=== PATIENT | female | born 1965 | race Caucasian/White ===

== ENCOUNTER → 2017-04-29 18:24 | Outpatient (CLI) | payer OTHER, SELFPAY ==
[2017-04-29 18:29] LABS: Mucous, Urine 0 SEEN /hpf (<or=2+); Red Blood Cells-Urine 0 SEEN /hpf (0-5); Squamous Epithelial Cells - UA 0 SEEN /hpf (5-10)
[2017-04-29 18:31] LABS: Color, Urine Yellow (Yellow); Glucose, Dipstick Normal (Normal); Ketone-Dipstick Negative (Negative); Leukocyte Esterase-Dipstick 500 /ul (Negative); Nitrite-Dipstick Positive (Negative); Occult Blood-Urine 250 /ul (Negative); Protein-Dipstick 15 mg/dl (Negative); Urine Bilirubin Dipstick Negative (Negative); Urine Clarity Sl. Cloudy (Clear); Urine Urobilinogen Normal (Normal); Urine pH 6.5 (5.0 - 8.0)
[2017-04-29 18:36] LABS: White Blood Cells 25-50 SEEN /hpf (0-5)
[2017-04-29 18:37] LABS: Bacteria 1+ /hpf (None Seen)
[2017-04-29 18:38] LABS: Amorphous Sediment 1+
== END ==
PROVIDERS: Family Provider Family Medicine; PCP Family Medicine; Visit Provider Physician Assistant Surgical
DX: R30.0 Dysuria (principal)
CPT/HCPCS: 81001; 87077; 87086; 87088; 87186

== ENCOUNTER 2020-06-21 11:35 | Emergency (ER) | payer OTHER, SELFPAY ==
[2019-03-31 13:24] VITALS: BMI 23.8
[2020-06-21 11:36] VITALS: BP 147/97; PULSE 114; RESP 16; TEMP 36.3; O2SAT 98; BMI 25.0
--- NOTE | 2020-06-21 12:03 | RAD_ITS ---
STUDY: X-RAY - RIGHT HAND, ATTENTION 3 FINGER REASON FOR EXAM: Female, 54 years old. distal finger caught in machine TECHNIQUE: 3 view(s) of the finger were obtained. COMPARISON: None. FINDINGS: Normal metacarpal head. Normal metacarpophalangeal joint. Normal proximal phalanx. Normal middle phalanx. Partial amputation of the distal aspect of the digit with a comminuted fracture of the tuft of the distal phalanx. Normal proximal interphalangeal joint. Normal distal interphalangeal joint. RAD/Finger(s) Min 2 Views IMPRESSION: Partial indication the distal aspect of the third digit with comminuted fracture the tuft of the third distal phalanx per Electronically Signed: Daren Hernandez MD at 12:27 EDT Tel , Service support ,
--- NOTE | 2020-06-21 12:40 | ED.DCSUM_ITS ---
History of Present Illness Chief Complaint: Upper Extremity Injury Informant: Patient, Significant Other Narrative: 54-year-old female was using a wood continuous improvement analyst today when the piece of wood she was inserting got grabbed and started to pull her towards the business end. She jerked her hand back and hit it on the shield. This caused the end of the finger to explode. She states her legs feel very heavy. She states that lot of pain. She needs her tetanus updated. Past Medical History - Allergies and Home Meds Allergies/Adverse Reactions: Allergies venom-honey bee Allergy (Verified 06/21/20 11:37) Unknown Primary Care Physician: Manohar Adams DO [Primary Care Provider] - 10 Day for suture removal Past Medical History: None Surgical History: noncontributory Lives: Spouse/ Significant Other Smoking Status: Never smoker Drugs: None Review of Systems General: Denies: Chills, Fever, Sweats Eyes: Denies: Visual changes - bilaterally, Diplopia ENT: Denies: Rhinorrhea, Sore throat Cardiovascular: Denies: Chest pain, Palpitations Respiratory: Denies: Dyspnea, Cough, Dyspnea on exertion Gastrointestinal: Denies: Abdominal pain, Nausea, Vomiting, Diarrhea, Melena, Hematochezia Genitourinary: Denies: Dysuria, Hematuria, Frequency Musculoskeletal: Reports: Extremity Pain. Denies: Back pain Skin: Reports: Wounds. Denies: Rash Neurological: Denies: Headache, Weakness, Numbness Physical Exam Vital Signs/Narrative: Vital Signs Temp Pulse Resp BP Pulse Ox 06/21/20 11:36 97.4 F L 114 H 16 147/97 H 98 Inital Vital Signs reviewed: Yes General: Well nourished, Well developed, No Acute Distress Head: Normocephalic, Atraumatic Eyes: Perrl, EOMI ENT: Moist mucous membranes, No rhinorrhea Neck: Supple, Nontender Cardiovascular: Regular rate, Regular rhythm, No murmurs Respiratory: No distress, CTA bilaterally, Chest nontender Abdomen: Soft, Nontender, Nondistended, Normal bowel sounds Back: Nontender, Normal Inspection Extremities: Nontender, No edema Skin: Normal color, No rash, Trauma - The distal end shows significant skin avulsion. There is subcutaneous fat exposed. It appears that the bone is covered. Neurological: Alert, Oriented x3, Cranial nerves II-XII grossly intact, Normal Strength, Normal Sensation Psychological: Normal affect, Normal Mood Diagnostic/Tx/Re-eval Clinical Impression(s) from Imaging Studies Finger X-Ray 06/21/20 12:03 IMPRESSION: Partial indication the distal aspect of the third digit with comminuted fracture the tuft of the third distal phalanx per Electronically Signed: Daren Hernandez MD at 12:27 EDT Tel , Service support , - Medical Decision Making My interpretation of the plain films of the right middle finger is comminuted distal tuft fracture. Left tissue avulsion. Patient underwent digital block of her long finger using a standard volar approach. Once adequate anesthesia was obtained the wound was washed with Shur- Clens and explored. Multiple small wooden foreign bodies were removed. Four 5- 0 Ethilon sutures were used to close the remaining tissue as best I could. Wound care discussed with patient. Stitches to be removed in 10 days. Patient received [place] and Keflex here. She be placed on Keflex. Wound care discussed with the patient. ED Disposition - Plan for ED Patient: Disposition: Home or Assisted Living Diagnosis: Closed fracture of tuft of distal phalanx of finger, Avulsion, skin Instructions: ED Fracture, Finger, Closed, ED Skin Avulsion Prescriptions: Cephalexin [Keflex] 500 mg PO Q6 #28 capsule Prescription Printed Hydrocodone Bitart/Apap 5-325 [[place] 5MG-325MG] 1 tablet PO Q6H PRN PRN 3 Days #12 tab PRN Reason: Pain Prescription Printed Referrals: Manohar Adams DO [Primary Care Provider] - 10 Day for suture removal
[2020-06-21] MEDS: Lidocaine 1% (20 ml mdv) 20 ML Vial INFILT (12:45)
[2020-06-21] MEDS: Diphth,Pertuss(Acell),Tet Vac 0.5 ML Vial IM (12:57)
[2020-06-21] MEDS: HYDROcodone Bitartrate/Apap 5/325 Tablet PO (12:58)
[2020-06-21] MEDS: Cephalexin 250 MG Capsule 500 MG PO (12:58)
[2020-06-21 13:09] VITALS: BP 128/79; PULSE 76; RESP 18; O2SAT 100
== END 2020-06-21 13:22 | disposition home or self-care (01) ==
PROVIDERS: Emergency Provider Emergency Medicine; PCP Family Medicine
DX: S62.632A Displaced fracture of distal phalanx of right middle finger, initial encounter for closed fracture (principal); S61.203A Unspecified open wound of left middle finger without damage to nail, initial encounter; W31.89XA Contact with other specified machinery, initial encounter; Y93.89 Activity, other specified; Y92.89 Other specified places as the place of occurrence of the external cause; Y99.8 Other external cause status; Z23 Encounter for immunization
CPT/HCPCS: 10120; 73140; 90471; 90715; 99284

== ENCOUNTER 2020-11-13 11:00 | Outpatient (RCR) | payer OTHER, SELFPAY ==
--- NOTE | 2020-10-14 14:49 | HP.OTEVAL ---
Patient's Visit Information YOLANDA MIJARES is a 55 year old F, referred to Occupational Therapy by Dr. Manohar Adams DO, with a diagnosis of PAIN R FINGER, ADHESIVE CAPSULITIS R SHOULDER. Date of Evaluation: 10/14/20 Occupational Therapist: Rhona Deras - Subjective Pt seen for initial occupational therapy evaluation for pain R middle finger and adhesive capsulitis R shoulder. 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 On June 25 2020 she had an incident with wood production line hurting R middle finger with a significant laceration to R middle finger DIP with comminuted distal fracture with 4 stitches applied to keep R tip of middle finger in place, states was just the tip of the finger but now has limited ROM, swelling and increased edema of her R middle finger. Pt states tingling of the tip of her R middle finger since accident. Pt states when she hurt her finger she was very careful about moving R arm and now has increased pain and limited ROM and strength of her R shoulder. Her shoulder hurts when in flexion and when she completes internal/external rotation activities and completes specific upper body dressing tasks. She also has been seeing a massage therapists to help decrease her pain in her R shoulder every 3 weeks. Pt was independent with all BADL's, IADL's prior and still works. - Pain R shoulder 2 Pain Intensity Range: 1, 8 - Objective Pt demo limited ROM, strength and edema R middle finger and limited ROM with increased pain of her R shoulder with movement. - ROM MP: R middle -5'/85', L middle 0/100' PIP: R middle -8'/73', L middle 0/104' DIP: R middle 0'/25', L middle 0/65' ROM Comments: AROM R shoulder flexion 0/130', AROM L shoulder flexion 0/178'. AROM R shoulder abduction 0/110' AROM, L shoulder abduction 0/130'. PROM R shoulder abduction 0'/153'. PROM R shoulder flexion 0'/148' - Strength Shoulder: R 4-/5, L 4+/5 Aws Solution Architect: R 43# L 50# Tripod Pinch: R 6#, L 10# Strength Comments: R UE MMT 4-/5, L UE MMT 4+/5 - Edema Other: slight edema noted R middle finger, non-pitting - Sensation Sensation Comments: Limited sensation R tip of middle finger secondary to scar from incident in June 2020 - Quick DASH-Disab of Arm,Shoulder& Hand Quick DASH Score: 45.4525 - Goals Goal:: Pt will progress with x ray control equipment repairer strength R hand by 10# to assist with opening containers by d/c from OT. Pt will progress with R UE MMT 4/5 to assist with IADL tasks by d/c from OT. Pt will progress with tripod pinch R hand by 4# to assist with BADL tasks by d/c from OT. Goal:: Pt will progress w/ R shoulder AROM flexion by 40' to assist w/ BADL tasks by d/c from OT. Pt will progress w/ R middle finger PIP flexion by 10' to assist w/ BADL tasks by d/c from OT. Goal:: Pt will demo no pain greater than 1/10 with movement of R shoulder by d/c from OT. Goal:: Pt will demo good understanding of R UE HEP with 100% understanding and demo by d/c from OT. - Rehabilitation General Assessment: Pt seen for initial occupational therapy evaluation for pain R middle finger and adhesive capsulitis R shoulder. On June 25 2020 she had an incident with wood production line hurting R middle finger with a significant laceration to R middle finger DIP with comminuted distal fracture with 4 stitches applied to keep R tip of middle finger in place, states was just the tip of the finger but now has limited ROM, swelling and increased edema of her R middle finger. Pt states tingling of the tip of her R middle finger since accident. Pt states when she hurt her finger she was very careful about moving R arm and now has increased pain and limited ROM and strength of her R shoulder. Pt demonstrated limited ROM and strength of her R middle finger/hand, and R shoulder with decreased strength. She would benefit from direct occupational therapy services to increase her R UE strength, ROM of her R middle finger and shoulder and decrease pain and edema to return to PLOF. Rehabilitation Potential: Good - Anticipated Interventions A/AAROM/PROM, Strengthening, Edema Control, Scar Care, Massage, Triggerpoint Release, Modalities, Orthoses, Joint Protection/Energy Conservation, Fine Motor Coord/Long, ADL Training, Education re Diagnosis, Home Program - Visit Plan Frequency: 1-2x /Week Duration: 4-6 Weeks General Plan: increase pt's R UE strength and ROM of R middle finger and shoulder and decrease pain and edema to increase her functional independence 1-2x/wk x 4-6wks TEXT: Thank you for the opportunity to evaluate your patient. For Medicare and Medicare HMO plans, please review the plan of care and approve it. It will need to be FAXED BACK to us at [phone] for Medicare purposes. Please let me know if there are questions or concerns regarding this plan of care. Physician Signature: Date:
--- NOTE | 2020-11-13 13:45 | HP.OTDCSUM_ITS ---
It has been my pleasure to treat YOLANDA MIJARES under orders from Dr. Manohar Adams DO, for the diagnosis of PAIN R FINGER, ADHESIVE CAPSULITIS R SHOULDER for a total of 8 visit(s). Please see the following information for a summary of their discharge status. % Improvement: 95 Objective/Function: Shoulder strength: 4/5 (was 4-/5 at eval. L is 4+/5). Patient Goals: Regain Strength, Decrease Pain, Decrease Swelling/Stiffness, Improve Fine Motor Skills, Use Hand/Wrist/Arm Normally Again, Sleep Better, De crease Tingling/Numbness, Increase ROM, Be More Independent in ADLS, Resume Hobbies Goal:: Pt will progress with atomic fuel assembler strength R hand by 10# to assist with opening containers by d/c from OT. Pt will progress with R UE MMT 4/5 to assist with IADL tasks by d/c from OT. Pt will progress with tripod pinch R hand by 4# to assist with BADL tasks by d/c from OT. Goal:: Pt will progress w/ R shoulder AROM flexion by 40' to assist w/ BADL tasks by d/c from OT. Pt will progress w/ R middle finger PIP flexion by 10' to assist w/ BADL tasks by d/c from OT. Goal:: Pt will demo no pain greater than 1/10 with movement of R shoulder by d/c from OT. Goal:: Pt will demo good understanding of R UE HEP with 100% understanding and demo by d/c from OT. Plan: cont POC Discharge Comments: pt was seen for 8 treatment sessions to increase strength, ROM, and decrease pain. Pt has made significant gains and returned to PLOF, and is independent in ADLs, IADLs, BADLs, and work tasks. She has reported a 0/10 pain in both her shoulder and her finger, and is able to make a composite fist. Pt understands and agrees with d/c. If there are questions or concerns regarding this patient's occupational therapy, please fell free to call me at [phone]. Thank you for the referral of this patient. Sincerely, Zoe Islas, OTR/L, CHT
== END 2020-11-13 19:00 | disposition home or self-care (01) ==
LOC: OT 11:00
PROVIDERS: PCP Family Medicine; Referring Provider Family Medicine; Visit Provider Family Medicine
DX: M79.644 Pain in right finger(s) (principal); M75.01 Adhesive capsulitis of right shoulder
CPT/HCPCS: 97035; 97110; 97140; 97165; 97166; 97530

== ENCOUNTER 2022-09-16 21:45 | Emergency (ER) | payer OTHER, SELFPAY ==
[2022-09-16 21:45] VITALS: BP 180/90; PULSE 94; RESP 16; TEMP 36.6; O2SAT 100; BMI 25.2
[2022-09-16 21:55] VITALS: BP 174/96; PULSE 76; RESP 18; O2SAT 100
--- NOTE | 2022-09-16 22:13 | EKG12_ITS ---
Test Reason : CP Blood Pressure : / mmHG Vent. Rate : 080 BPM Atrial Rate : 080 BPM P-R Int : 146 ms QRS Dur : 072 ms QT Int : 360 ms P-R-T Axes : 071 024 053 degrees QTc Int : 415 ms Normal sinus rhythm Nonspecific ST abnormality Abnormal ECG Confirmed by SOPHIA ELKINS, LIGIA ([id number]), greeting card editor USHA MILLER ([id number]) on 09/20/2022 10:44:16 A M Referred By: PL Confirmed By:SOLA CORTES MD
--- NOTE | 2022-09-16 22:13 | ED.VIS.CHEST ---
HPI <Dr. Godfrey Galan MD - Last Filed: 09/16/22 23:46> History of Present Illness Chief Complaint: Chest Pain Informant: patient and spouse/S.O. Narrative Narrative: Patient presents with right-sided chest pain. Patient states that sometime afternoon after she had eaten she started to get some discomfort on the right side of her chest. She can of outlines a small area. She states is not really a pain but more of a discomfort. Unlike the triage note she denied to me that she had nausea vomiting or shortness of breath. She did say that over the last 45 minutes she has noticed it more and she just felt maybe a little bit off or lightheaded. But not really short of breath. Its not pleuritic. She is not coughing. She has never had a sweat. In fact she went for a walk today after the pain started and she felt better when she was walking. She does have a history of GERD but is not having sour taste in the mouth or epigastric pain now. She has no travel surgery immobilization personal or family history of DVT or PE and no leg pain or swelling. She is a non-smoker, no history of high blood pressure or high cholesterol diabetes or family history of heart disease. There is a family history of high blood pressure and she states occasionally her blood pressure has been high when its been checked but she has never had treatment recommended. Nothing really makes the pain better or worse but it did seem a little bit less when she was active busy or walking. She was pulling some weeds earlier today but does not really recall hurting herself. This was not out of normal for her. PFSH <Dr. Godfrey Galan MD - Last Filed: 09/16/22 23:46> [facility] Medical History no medical history Home Medications NK 09/16/22 [History Last Taken Unknown] Allergy/AdvReac Type Severity Reaction Status Date / Time venom-honey bee Allergy Unknown Verified 09/16/22 21:47 Social History Smoking Status: Never smoker alcohol intake: never ROS <Dr. Godfrey Galan MD - Last Filed: 09/16/22 23:46> ROS ED ROS Narrative A complete review of systems was performed and is negative except as documented in the history of present illness. Some specific details below. Constitutional: No recent fevers or chills. She has not been ill recently. EYE: No discharge, visual complaints, or pain. ENT: No difficulty swallowing. No swelling. No pain. No reflux symptoms although she has had reflux in the past. CV: See history of present illness. Respiratory: See history of present illness. GI: No abdominal pain. No nausea vomiting diarrhea. No blood in stool. : No frequency dysuria or hematuria. Musculoskeletal: No recent trauma. No pains. No swelling. No cramping. Skin: No rash. Nondiaphoretic. Neuro: No weakness or numbness. Endocrine: No polyuria or polydipsia. EXAM <Dr. Godfrey Galan MD - Last Filed: 09/16/22 23:46> Physical Exam Narrative Exam Narrative: CONSTITUTIONAL: Patient is nontoxic in appearance. The patient looks comfortable laying in bed. Work of breathing looks normal. HEENT: No notable trauma. Mucous membranes moist. No sinus tenderness. No indication of pain with swallowing. EYES: No conjunctival injection. No proptosis. NECK:No JVD. No stridor. CARDIOVASCULAR: Regular rate. Regular rhythm. No notable murmur. No JVD. RESPIRATORY: No respiratory distress. Breathing is unlabored. No wheezes. No rhonchi. No rales. No pain with a deep breath. No chest wall tenderness including the area of discomfort. She can outline this rather small area that is about 1 x 2-1/2 or 3 inches on the right lateral chest. But no tenderness mass or skin changes. GASTROINTESTINAL: Not distended. Bowel sounds are normal. No tenderness. No guarding. No rebound. No palpable mass. No bruit is heard. GENITOURINARY: No tenderness over the bladder. No CVA tenderness. MUSCULOSKELETAL: Atraumatic. No peripheral edema. No cord. No tenderness along the deep venous system. No asymmetry. No distended veins. NEUROLOGICAL: Patient is alert and appropriate. No focal deficit noted. SKIN: No noted rashes. No diaphoresis. PSYCHIATRIC: Patient is calm. Mood is appropriate. Const Vital Signs: 09/16/22 21:45 09/16/22 21:55 09/16/22 21:55 Temperature 97.9 F Temperature Source Temporal Pulse Rate 94 76 Respiratory Rate 16 18 Respiratory Effort Normal Non-Labored Blood Pressure 180/90 H 174/96 H Blood Pressure Mean 120 122 Pulse Ox 100 100 Oxygen Delivery Method Room Air Nasal Cannula 09/16/22 22:15 09/16/22 22:45 09/16/22 23:00 Temperature Temperature Source Pulse Rate 64 69 Respiratory Rate 19 H Respiratory Effort Blood Pressure 160/88 H Blood Pressure Mean 112 Pulse Ox 100 99 Oxygen Delivery Method Room Air Room Air 09/17/22 00:00 Temperature Temperature Source Pulse Rate 64 Respiratory Rate 17 Respiratory Effort Blood Pressure 131/86 H Blood Pressure Mean 101 Pulse Ox 97 Oxygen Delivery Method Room Air <Dr. Haseeb Arnold DO - Last Filed: 09/17/22 00:55> Physical Exam Const Vital Signs: 09/16/22 21:45 09/16/22 21:55 09/16/22 21:55 Temperature 97.9 F Temperature Source Temporal Pulse Rate 94 76 Respiratory Rate 16 18 Respiratory Effort Normal Non-Labored Blood Pressure 180/90 H 174/96 H Blood Pressure Mean 120 122 Pulse Ox 100 100 Oxygen Delivery Method Room Air Nasal Cannula 09/16/22 22:15 09/16/22 22:45 09/16/22 23:00 Temperature Temperature Source Pulse Rate 64 69 Respiratory Rate 19 H Respiratory Effort Blood Pressure 160/88 H Blood Pressure Mean 112 Pulse Ox 100 99 Oxygen Delivery Method Room Air Room Air 09/17/22 00:00 Temperature Temperature Source Pulse Rate 64 Respiratory Rate 17 Respiratory Effort Blood Pressure 131/86 H Blood Pressure Mean 101 Pulse Ox 97 Oxygen Delivery Method Room Air <Dr. Godfrey Galan MD - Last Filed: 09/16/22 23:46> Heart Score History: Slightly/Non-Suspicious ECG: Nonspecific Repolarization Age: >45 - <65 years Risk Factors: No Risk Factors Troponin: </= Normal Limit Score: 2 <Dr. Haseeb Arnold DO - Last Filed: 09/17/22 00:55> Heart Score Score: 2 MDM <Dr. Godfrey Galan MD - Last Filed: 09/16/22 23:46> MDM MDM Narrative Medical decision making narrative: My independent interpretation of the patient's single view chest x-ray shows what I suspect is a hiatal hernia. Final reading by radiology is is either a small medial left diaphragmatic or paraesophageal hiatal hernia versus diaphragmatic eventration. I do not think she requires acute CT to evaluate this as I do not think this is likely the source of her symptoms. CBC is normal. Electrolytes are normal other than minimal elevation of glucose at 117. Her troponin was 6 which is normal. We are pending repeat troponin. I discussed with the patient her EKG, x-ray and blood work at this point. Even though she had some symptoms that started at noon she did state that the symptoms seemed a little bit more over about 45 minutes to an hour before she came in. For this reason we will repeat a troponin. As long as this is normal I think she can go home. She does have a low heart score. She is also not tachycardic tachypneic or hypoxic. She has no known risk factor for DVT or PE. I do not think she needs CT imaging for dissection or PE or other acute process. Lab Data Attestation: I reviewed the patient's lab results. Labs: Laboratory Results - last 24 hr 09/16/22 09/16/22 09/17/22 22:02 22:02 00:03 WBC 8.4 RBC 4.47 Hgb 12.5 Hct 37.8 MCV 84.6 MCH 28.0 MCHC 33.1 RDW Std Deviation 37.8 RDW Coeff of Jose J 12.4 Plt Count 343 MPV 9.7 Immature Gran % (Auto) 0.100 Neut % (Auto) 47.2 Lymph % (Auto) 42.2 H Gray % (Auto) 9.0 Eos % (Auto) 0.8 Baso % (Auto) 0.7 Absolute Neuts (auto) 3.9 Absolute Lymphs (auto) 3.52 Nucleated RBC % 0 Sodium 137 Potassium 3.5 Chloride 104 Carbon Dioxide 26.0 Anion Gap 7 BUN 15 Creatinine 0.96 Estim Creat Clear Calc 61.26 Est GFR (MDRD) Af Amer 78 Est GFR (MDRD) Non-Af 64 BUN/Creatinine Ratio 15.7 Glucose 117 H Calcium 9.6 Troponin I High Sens 6 9 Radiography Diagnostic Testing: Clinical Impression(s) from Imaging Studies Chest X-Ray 09/16/22 22:19 IMPRESSION: Small medial left diaphragmatic or paraesophageal hiatal hernia versus diaphragm eventration. A prior exam would be useful for comparison. A CT could be considered if it is thought to be indicated. Otherwise unremarkable exam. Electronically Signed: Gi Hickey MD at 23:24 EDT , EKG Initial EKG: Comments: My independent interpretation the patient's EKG done for chest pain shows a normal sinus rhythm with overall rate of 80. No ectopy. Minimal nonspecific changes but no sign of acute infarct or ischemia. ID interval, QRS duration and QTc are normal. <Dr. Haseeb Arnold, DO - Last Filed: 09/17/22 00:55> [facility] Narrative Medical decision making narrative: My independent interpretation of the patient's single view chest x-ray shows what I suspect is a hiatal hernia. Final reading by radiology is is either a small medial left diaphragmatic or paraesophageal hiatal hernia versus diaphragmatic eventration. I do not think she requires acute CT to evaluate this as I do not think this is likely the source of her symptoms. CBC is normal. Electrolytes are normal other than minimal elevation of glucose at 117. Her troponin was 6 which is normal. We are pending repeat troponin. I discussed with the patient her EKG, x-ray and blood work at this point. Even though she had some symptoms that started at noon she did state that the symptoms seemed a little bit more over about 45 minutes to an hour before she came in. For this reason we will repeat a troponin. As long as this is normal I think she can go home. She does have a low heart score. She is also not tachycardic tachypneic or hypoxic. She has no known risk factor for DVT or PE. I do not think she needs CT imaging for dissection or PE or other acute process. Dr. Arnold dictating: Patient signed out to me for monitoring until her delta troponin comes back. I reviewed the case. I reviewed all lab work and imaging. High-sensitivity troponin initially 6 and delta troponin 9. I feel at this point the patient is stable for discharge home. Discussed return precautions with her and follow-up. Lab Data Labs: Laboratory Results - last 24 hr 09/16/22 09/16/22 09/17/22 22:02 22:02 00:03 WBC 8.4 RBC 4.47 Hgb 12.5 Hct 37.8 MCV 84.6 MCH 28.0 MCHC 33.1 RDW Std Deviation 37.8 RDW Coeff of Jose J 12.4 Plt Count 343 MPV 9.7 Immature Gran % (Auto) 0.100 Neut % (Auto) 47.2 Lymph % (Auto) 42.2 H Gray % (Auto) 9.0 Eos % (Auto) 0.8 Baso % (Auto) 0.7 Absolute Neuts (auto) 3.9 Absolute Lymphs (auto) 3.52 Nucleated RBC % 0 Sodium 137 Potassium 3.5 Chloride 104 Carbon Dioxide 26.0 Anion Gap 7 BUN 15 Creatinine 0.96 Estim Creat Clear Calc 61.26 Est GFR (MDRD) Af Amer 78 Est GFR (MDRD) Non-Af 64 BUN/Creatinine Ratio 15.7 Glucose 117 H Calcium 9.6 Troponin I High Sens 6 9 Radiography Diagnostic Testing: Clinical Impression(s) from Imaging Studies Chest X-Ray 09/16/22 22:19 IMPRESSION: Small medial left diaphragmatic or paraesophageal hiatal hernia versus diaphragm eventration. A prior exam would be useful for comparison. A CT could be considered if it is thought to be indicated. Otherwise unremarkable exam. Electronically Signed: Gi Hickey MD at 23:24 EDT , Discharge Plan Triage Chief Complaint: Chest Pain ED Provider: Godfrey Galan Dx/Rx/DC Orders Clinical Impression: Chest pain, Hernia, hiatal Instructions: ED Chest Pain, Uncertain Cause Prescriptions: No Action NK Primary Care Provider: Manohar Adams Referrals: Manohar Adams, [Primary Care Provider] - 3-5 Days Disposition Disposition: Home, Self Care
[2022-09-16 22:15] VITALS: O2SAT 100
--- NOTE | 2022-09-16 22:19 | RAD_ITS ---
EXAM: XR CHEST, 1 VIEW CLINICAL INDICATION: chest pain TECHNIQUE: Frontal view of the chest. COMPARISON: No relevant prior studies available. FINDINGS: LUNGS AND PLEURAL SPACES: Unremarkable. No consolidation or edema. No pneumothorax. No effusion. HEART: Unremarkable. Cardiac silhouette not enlarged. MEDIASTINUM: There is mild hiatal hernia versus stomach projecting superiorly into a small diaphragmatic eventration, measuring roughly 5.8 cm x 2.7 cm. BONES/JOINTS: Unremarkable. SOFT TISSUES: Unremarkable. RAD/Chest 1 View (Portable) IMPRESSION: Small medial left diaphragmatic or paraesophageal hiatal hernia versus diaphragm eventration. A prior exam would be useful for comparison. A CT could be considered if it is thought to be indicated. Otherwise unremarkable exam. Electronically Signed: Gi Hickey MD at 23:24 EDT ,
[2022-09-16 22:23] LABS: Absolute Lymphocyte Count 3.52 X10^3/uL (0.83-4.51); Absolute Neutrophil Count 3.9 X10^3/uL (2.0-7.7); Basophil# 0.06 X10^3/uL; Basophil% 0.7 % (0-1); Eosinophil# 0.07 X10^3/uL; Eosinophils% 0.8 % (0-5); Hematocrit 37.8 % (37-47); Hemoglobin 12.5 g/dL (12.0-15.0); Lymphocyte # 3.52 X10^3/ul (0.83-4.51); Lymphocyte % 42.2 % (19-41); Mean Corp Hgb Conc 33.1 g/dL (32-36); Mean Corpuscular Volume 84.6 fL (81-99); Mean Platelet Vol. 9.7 fl (6.2-12.0); Monocyte# 0.75 X10^3/uL; NRBC Flagged by Analyzer 0 % (0-5); Neutrophil # 3.94 X10^3/uL (2.7-7.7); Neutrophil % 47.2 % (47-70); Platelet Count 343 K/mm3 (150-450); RBC Distribution Width CV 12.4 % (11.6-14.6); RBC Distribution Width SD 37.8 fl (35.1-43.9); Red Blood Count 4.47 M/mm3 (4.2-5.4); White Blood Count 8.4 K/mm3 (4.4-11.0)
[2022-09-16] MEDS: Aspirin 81 MG TAB.CHEW 324 MG PO (22:28)
[2022-09-16 22:41] LABS: Anion Gap 7 (5-15); BUN 15 mg/dL (7-18); BUN/Creat Ratio 15.7 RATIO (10-20); Calcium,Total 9.6 mg/dL (8.5-10.1); Chloride 104 mmol/L (98-107); Creatinine, Serum 0.96 mg/dL (0.55-1.02); EST Glomerular Filtration Rate 64 mL/min (>60); Est Glom Filt Rate - Afr Amer 78 mL/min (>60); Estimated Creatinine Clearance 61.26 ml/min; Glucose 117 mg/dL (74-106); Potassium 3.5 mmol/L (3.5-5.1); Sodium Level 137 mmol/L (136-145); Troponin-I HS (w/2H Reflex) 6 pg/mL (3.0-54.0)
[2022-09-16 22:45] VITALS: BP 160/88; PULSE 64; RESP 19; O2SAT 99
[2022-09-16 23:00] VITALS: PULSE 69
[2022-09-17] VITALS: BP 131/86; PULSE 64; RESP 17; O2SAT 97
[2022-09-17 00:22] LABS: Reflex Troponin-HS? (from REC) Y
[2022-09-17 00:38] LABS: Troponin-I HS 9 pg/mL (3.0-54.0)
[2022-09-17 01:01] VITALS: BP 142/89; PULSE 72; RESP 16; O2SAT 96
== END 2022-09-17 01:01 | disposition home or self-care (01) ==
PROVIDERS: Emergency Provider Emergency Medicine; PCP Family Medicine; Visit Provider Emergency Medicine
DX: R07.9 Chest pain, unspecified (principal); K44.9 Diaphragmatic hernia without obstruction or gangrene
CPT/HCPCS: 71045; 80048; 84484; 85025; 93005; 99285; A4216

== ENCOUNTER 2022-09-18 11:01 | Emergency (ER) | payer OTHER, SELFPAY ==
[2022-09-18] VITALS (8 sets, daily range): BP systolic 116–174; BP diastolic 83–103; PULSE 58–80; RESP 11–18; TEMP 36.6; O2SAT 100; BMI 25.2
--- NOTE | 2022-09-18 11:37 | EKG12_ITS ---
Test Reason : CHEST TIGHTNESS Blood Pressure : / mmHG Vent. Rate : 065 BPM Atrial Rate : 065 BPM P-R Int : 152 ms QRS Dur : 074 ms QT Int : 386 ms P-R-T Axes : 069 016 048 degrees QTc Int : 401 ms Normal sinus rhythm Normal ECG Confirmed by SOPHIA ELKINS, LIGIA ([id number]), acquisition editor USHA MILLER ([id number]) on 09/20/2022 10:58:38 A M Referred By: DANIELA Confirmed By:SOLA CORTES MD
--- NOTE | 2022-09-18 11:49 | EX.ED.DYSGE1 ---
HPI History of Present Illness Chief Complaint: Dizziness Informant: patient Onset/Context/Timing Onset: Today Context: Sudden Onset Timing: Continuous Quality: Tightness Location: Chest Worsened by: Nothing Relieved by: Nothing Narrative Narrative: Patient presents with dizziness that began again today. Patient states it feels more like she is lightheaded. Patient also states she is having some tightness in her chest. Patient checked her blood pressure at home and noticed that it was elevated. Patient does not have a history of hypertension. Patient states she was seen here 2 days ago for similar symptoms. Patient states she was diagnosed with a hiatal hernia at that point. Patient states her cardiac work-up was negative. Patient denies any fevers or chills. Patient denies any nausea or vomiting. Patient states nothing makes her lightheadedness better nothing makes it worse. PFSH PFSH Medical History no medical history no medical history Home Medications amlodipine 5 mg tablet 5 mg PO DAILY #7 tabs 09/18/22 [Rx Last Taken Unknown] Allergy/AdvReac Type Severity Reaction Status Date / Time venom-honey bee Allergy Unknown Verified 09/18/22 11:04 Surgical History no surgical history no surgical history Social History Smoking Status: Never smoker alcohol intake: never ROS ROS ED Constitutional Constitutional ED: Denies chills or fever(s) Eyes Eyes: Denies blurry vision or change in vision ENT ENT ED: Denies rhinorrhea or sore throat Cardiovascular Cardiovascular: Reports chest pain; Denies palpitations Respiratory/Chest Respiratory/Chest: Denies cough or dyspnea Gastrointestinal Gastrointestinal: Denies nausea or vomiting Genitourinary Genitourinary ED: Denies dysuria or hematuria Musculoskeletal Musculoskeletal: Denies back pain or neck pain Integumentary Denies abscess or rash Neurologic Neurologic: Reports headache(s); Denies weakness Allergic/Immunologic Allergic/Immunologic ED: Denies mouth swelling or urticaria EXAM Physical Exam Const Vital Signs: 09/18/22 11:02 09/18/22 11:10 09/18/22 11:10 Temperature 97.8 F Temperature Source Temporal Pulse Rate 80 71 Pulse Rate [Lying] Pulse Rate [Sitting (for 1 minute prior to obtaining)] Pulse Rate [Standing (for 1 minute prior to obtaining)] Respiratory Rate 18 11 L Respiratory Effort Normal Non-Labored Respiratory Pattern Normal Blood Pressure 174/102 H 174/88 H Blood Pressure [Lying] Blood Pressure [Sitting (for 1 minute prior to obtaining)] Blood Pressure [Standing (for 1 minute prior to obtaining)] Blood Pressure Mean 126 116 Blood Pressure Mean [Lying] Blood Pressure Mean [Sitting (for 1 minute prior to obtaining)] Blood Pressure Mean [Standing (for 1 minute prior to obtaining)] Pulse Ox 100 100 Oxygen Delivery Method Room Air Room Air 09/18/22 11:17 09/18/22 12:00 09/18/22 13:00 Temperature Temperature Source Pulse Rate 60 Pulse Rate [Lying] 63 Pulse Rate [Sitting (for 1 minute prior to obtaining)] 64 Pulse Rate [Standing (for 1 minute prior to obtaining)] 68 Respiratory Rate 16 Respiratory Effort Respiratory Pattern Blood Pressure 156/92 H 130/83 H Blood Pressure [Lying] 155/86 H Blood Pressure [Sitting (for 1 minute prior to obtaining)] 161/96 H Blood Pressure [Standing (for 1 minute prior to obtaining)] 148/103 H Blood Pressure Mean 113 98 Blood Pressure Mean [Lying] 109 Blood Pressure Mean [Sitting (for 1 minute prior to obtaining)] 117 Blood Pressure Mean [Standing (for 1 minute prior to obtaining)] 118 Pulse Ox Oxygen Delivery Method Room Air 09/18/22 13:30 09/18/22 13:34 09/18/22 14:21 Temperature Temperature Source Pulse Rate 58 L 61 Pulse Rate [Lying] Pulse Rate [Sitting (for 1 minute prior to obtaining)] Pulse Rate [Standing (for 1 minute prior to obtaining)] Respiratory Rate 14 Respiratory Effort Respiratory Pattern Blood Pressure 120/86 H 118/86 H 116/84 H Blood Pressure [Lying] Blood Pressure [Sitting (for 1 minute prior to obtaining)] Blood Pressure [Standing (for 1 minute prior to obtaining)] Blood Pressure Mean 97 96 Blood Pressure Mean [Lying] Blood Pressure Mean [Sitting (for 1 minute prior to obtaining)] Blood Pressure Mean [Standing (for 1 minute prior to obtaining)] Pulse Ox Oxygen Delivery Method Positive well nourished and well developed General Appearance ED: well developed and NAD HEENT Reports moist mucous membranes Neck supple and no JVD Resp normal respiratory effort and clear to auscultation bilaterally Cardio regular rate, regular rhythm and no murmurs GI normal to inspection, nondistended, normoactive bowel sounds and non-tender Palpation: soft Extremity normal to inspection General Extremety ED: Negative for edema or tenderness General Extremity: Negative for edema Neuro oriented x3, CN's II-XII intact bilaterally and no sensory deficits noted Sensorium / Orientation: alert Motor Exam: strength 5/5 throughout Psych mental status grossly normal Skin no rashes or lesions noted MDM MDM MDM Narrative Medical decision making narrative: Differential diagnosis includes electrolyte abnormality, dehydration, acute kidney injury, cardiac dysrhythmia, cardiac ischemia, pneumonia, hypertension, COVID infection, influenza infection, and anxiety. CBC will be obtained to assess for leukocytosis and anemia. Comprehensive metabolic profile will be obtained to assess for electrolyte abnormality, renal function, and hepatic function. High-sensitivity troponin will be obtained to assess for cardiac ischemia. Chest x-ray will be obtained to assess for pneumonia. EKG will be obtained to assess for cardiac dysrhythmia and cardiac ischemia. COVID-19 rapid antigen will be obtained to assess for COVID infection. Influenza A and influenza B antigens will be obtained to assess for influenza infection. Lab Data Attestation: I reviewed the patient's lab results. Lab results narrative: CBC was reviewed and was within normal limits. Comprehensive metabolic profile was reviewed and was within normal limits. High-sensitivity troponin was reviewed and was normal at 6. Labs: Laboratory Results - last 24 hr 09/18/22 09/18/22 12:00 12:00 WBC 8.3 RBC 4.58 Hgb 13.0 Hct 38.7 MCV 84.5 MCH 28.4 MCHC 33.6 RDW Std Deviation 37.4 RDW Coeff of Jose J 12.3 Plt Count 344 MPV 9.4 Immature Gran % (Auto) 0.400 Neut % (Auto) 67.3 Lymph % (Auto) 22.1 [place] % (Auto) 9.1 Eos % (Auto) 0.5 Baso % (Auto) 0.6 Absolute Neuts (auto) 5.6 Absolute Lymphs (auto) 1.82 Nucleated RBC % 0 Sodium 140 Potassium 4.0 Chloride 106 Carbon Dioxide 30.0 Anion Gap 4 L BUN 14 Creatinine 0.90 Estim Creat Clear Calc 65.34 Est GFR (MDRD) Af Amer 83 Est GFR (MDRD) Non-Af 69 BUN/Creatinine Ratio 15.5 Glucose 96 Calcium 10.0 Total Bilirubin 0.40 AST 12 L ALT 19 Alkaline Phosphatase 77 Troponin I High Sens 6 Total Protein 7.6 Albumin 4.1 Globulin 3.5 Albumin/Globulin Ratio 1.2 Radiography Chest X-Ray - ED: 2 View, Read by ED Physician, Read by Radiologist and No Acute Disease Diagnostic Testing: Clinical Impression(s) from Imaging Studies Chest X-Ray 09/18/22 12:20 IMPRESSION: No acute cardiopulmonary abnormality. No interval change. Electronically Signed: Kj Gonsales MD at 13:10 EDT Reading Location ID and State: [address] [place] [address] Tel , Service support , PA and lateral chest x-ray was obtained. There are 2 views. On my independent interpretation, lung diaz are clear. There is normal cardiac silhouette. Bony thorax is normal. There is no acute process noted. Radiologist also interpreted the x-ray and agrees. EKG Initial EKG: Attestation: I personally reviewed and interpreted this EKG as follows: Interpretation: Sinus Rhythm (65) and No Acute Injury Pattern Comments: EKG was obtained. On my independent interpretation, it showed a normal sinus rhythm with a rate of 65. NM interval, QRS interval, and QTc intervals were all normal. [place] was normal. There are no acute ST or T wave changes. Prior EKG tracings: not available for review Prior: No Prior Treatment and Re-Evaluation :: Patient patient was given a dose of clonidine here. Patient was given IV fluids. Patient's blood pressure improved to 118/86 on reevaluation. Patient states her symptoms have resolved. I advised the patient that her symptoms may be related to her blood pressure. Patient was started on amlodipine for her blood pressure. Patient was instructed to continue to monitor her blood pressures at home. Patient was instructed to follow-up with her primary care physician this week. Patient understood and was agreeable with the plan. All questions were answered. Discharge Plan Triage Chief Complaint: Dizziness ED Provider: Praful Nolasco Dx/Rx/DC Orders Clinical Impression: Hypertension, Nonspecific dizziness Instructions: ED Hypertension New Begin Treatment Prescriptions: New amlodipine 5 mg tablet 5 mg PO DAILY Qty: 7 0RF Primary Care Provider: Manohar Adams Referrals: Manohar Adams DO [Primary Care Provider] - 5-7 Days Disposition Disposition: Home, Self Care Discharge Date/Time: 09/18/22 14:22
[2022-09-18] MEDS: cloNIDine HCl 0.1 MG Tablet PO (11:53)
[2022-09-18] MEDS: 0.9% Normal Saline 1,000 ML 1000 ML IV (11:58)
[2022-09-18 12:15] LABS: Absolute Lymphocyte Count 1.82 X10^3/uL (0.83-4.51); Absolute Neutrophil Count 5.6 X10^3/uL (2.0-7.7); Basophil# 0.05 X10^3/uL; Basophil% 0.6 % (0-1); Eosinophil# 0.04 X10^3/uL; Eosinophils% 0.5 % (0-5); Hematocrit 38.7 % (37-47); Lymphocyte # 1.82 X10^3/ul (0.83-4.51); Lymphocyte % 22.1 % (19-41); Mean Corp Hgb Conc 33.6 g/dL (32-36); Mean Corpuscular Hgb 28.4 pg (27.0-32.0); Mean Corpuscular Volume 84.5 fL (81-99); Mean Platelet Vol. 9.4 fl (6.2-12.0); Monocyte# 0.75 X10^3/uL; Monocyte% 9.1 % (0-10); NRBC Flagged by Analyzer 0 % (0-5); Neutrophil # 5.56 X10^3/uL (2.7-7.7); Neutrophil % 67.3 % (47-70); Platelet Count 344 K/mm3 (150-450); RBC Distribution Width CV 12.3 % (11.6-14.6); RBC Distribution Width SD 37.4 fl (35.1-43.9); Red Blood Count 4.58 M/mm3 (4.2-5.4); White Blood Count 8.3 K/mm3 (4.4-11.0)
--- NOTE | 2022-09-18 12:20 | RAD_ITS ---
EXAM: XR CHEST, 2 VIEWS CLINICAL INDICATION: Chest pain TECHNIQUE: Frontal and lateral views of the chest. COMPARISON: XR Chest dated 09/16/2022 FINDINGS: LUNGS AND PLEURAL SPACES: Normal. No consolidation or edema. No pneumothorax. No effusion. HEART: Normal heart size. MEDIASTINUM: No mediastinal or hilar mass. BONES/JOINTS: No acute abnormality. UPPER ABDOMEN: Bowel projects into a small left Bochdalek hernia. RAD/Chest PA and Lateral IMPRESSION: No acute cardiopulmonary abnormality. No interval change. Electronically Signed: Kj Gonsales MD at 13:10 EDT ,
[2022-09-18 12:33] LABS: ALB/GLOB Ratio 1.2 RATIO (0.9-2.4); AST(SGOT) 12 U/L (15-37); Alanine Aminotransfer ALT/SGPT 19 U/L (13-56); Albumin, Serum 4.1 g/dL (3.2-5.0); Alkaline Phosphatase 77 U/L (45-117); Anion Gap 4 (5-15); BUN 14 mg/dL (7-18); BUN/Creat Ratio 15.5 RATIO (10-20); Chloride 106 mmol/L (98-107); EST Glomerular Filtration Rate 69 mL/min (>60); Est Glom Filt Rate - Afr Amer 83 mL/min (>60); Estimated Creatinine Clearance 65.34 ml/min; Globulin 3.5 g/dL (2.2-4.2); Glucose 96 mg/dL (74-106); Protein, Total 7.6 g/dL (6.4-8.2); Sodium Level 140 mmol/L (136-145); Troponin-I HS 6 pg/mL (3.0-54.0)
== END 2022-09-18 14:22 | disposition home or self-care (01) ==
PROVIDERS: Emergency Provider Emergency Medicine; PCP Family Medicine; Visit Provider Emergency Medicine
DX: R42 Dizziness and giddiness (principal); I10 Essential (primary) hypertension
CPT/HCPCS: 71046; 80053; 84484; 85025; 87428; 93005; 96360; 99285; J7030; A4216

== ENCOUNTER → 2022-09-30 | Outpatient (CLI) | payer OTHER, SELFPAY ==
[2022-09-30 12:39] LABS: Cholesterol 276 mg/dL (200); High Density Lipoprotein 69 mg/dL; T4 Free Direct 0.98 ng/dL (0.76-1.46); Thyroid Stim Hormone (TSH) 2.27 uIU/mL (0.358-3.74); Triglycerides 89 mg/dL; Very Low Density Lipoprotein 18 mg/dL (5-40)
== END | disposition home or self-care (01) ==
LOC: BFHLAB 09:07
PROVIDERS: PCP Family Medicine; Referring Provider Family Medicine; Visit Provider Family Medicine
DX: Z00.00 Encounter for general adult medical examination without abnormal findings (principal); E01.0 Iodine-deficiency related diffuse (endemic) goiter
CPT/HCPCS: 36415; 80061; 84439; 84443

== ENCOUNTER → 2022-10-18 | Outpatient (CLI) | payer OTHER, SELFPAY ==
--- NOTE | 2022-10-18 08:39 | BI_ITS ---
MAMMOGRAPHY - BILATERAL SCREENING 3-D TOMOSYNTHESIS REASON FOR EXAM: Female, 57 years old. Routine screening PERTINENT HISTORY: No significant family history. TECHNIQUE: 2-D mammograms and 3-D Tomosynthesis of the breast (s) were performed. CAD was performed. COMPARISON: 2016 FINDINGS: The breast composition is heterogeneously dense that can obscure small breast masses. Scattered benign calcifications are seen. No dense spiculated masses or suspicious microcalcifications are identified. No architectural distortion is identified. There is no skin thickening or retraction. There has been no significant change since the prior study. BI/SCRN MAMM (CAD)W/PEG BILAT IMPRESSION: No mammographic signs of malignancy. Routine yearly mammograms recommended. ASSESSMENT CATEGORY: BIRADS Category 2: Benign. A letter regarding these results will be sent to the patient by the facility within 30 days. FOLLOW UP RECOMMENDATION: Yearly follow up mammogram recommended. (A) Approximately 10% of breast cancers are not detected by mammography. A normal mammogram should not delay biopsy of a clinically suspicious abnormality. Electronically Signed: Hamlet Anderson MD at 10:16 EDT ,
== END | disposition home or self-care (01) ==
LOC: OPBI 08:36
PROVIDERS: PCP Family Medicine; Referring Provider Family Medicine; Visit Provider Family Medicine
DX: Z12.31 Encounter for screening mammogram for malignant neoplasm of breast (principal)
CPT/HCPCS: 77063; 77067

== ENCOUNTER → 2022-12-08 | Outpatient (CLI) | payer OTHER, SELFPAY ==
[2022-12-08 12:52] LABS: AST(SGOT) 22 U/L (15-37); Alanine Aminotransfer ALT/SGPT 27 U/L (13-56); Albumin, Serum 4.2 g/dL (3.2-5.0); Alkaline Phosphatase 77 U/L (45-117); Bilirubin, Direct 0.09 mg/dL (0.00-0.30); Cholesterol 185 mg/dL (200); Globulin 3.8 g/dL (2.2-4.2); High Density Lipoprotein 78 mg/dL; Triglycerides 86 mg/dL; Very Low Density Lipoprotein 17 mg/dL (5-40)
== END | disposition home or self-care (01) ==
LOC: BFHLAB 08:49
PROVIDERS: PCP Family Medicine; Referring Provider Family Medicine; Visit Provider Family Medicine
DX: E78.5 Hyperlipidemia, unspecified (principal)
CPT/HCPCS: 36415; 80061; 80076

== ENCOUNTER → 2023-05-31 | Outpatient (CLI) | payer OTHER, SELFPAY ==
--- NOTE | 2023-05-31 16:05 | RAD_ITS ---
STUDY: X-RAY CHEST REASON FOR EXAM: Female, 57 years old. cough TECHNIQUE: PA and lateral COMPARISON: September 18, 2022 FINDINGS: The lungs are clear and expanded. There is no demonstrated pleural abnormality. Normal size heart. Normal mediastinum and leticia. Normal visualized pulmonary arteries. Normal visualized aortic arch and descending thoracic aorta. spine demonstrates mild scoliosis and degenerative change. Normal visualized ribs, clavicles, and shoulders. There is no demonstrated abnormality of the visualized soft tissue structures of the upper abdomen. RAD/Chest PA and Lateral IMPRESSION: No acute cardiopulmonary pathology. Electronically Signed: Camilo Zuñiga MD at 17:04 [facility] ,
== END | disposition home or self-care (01) ==
LOC: MTRAD 16:05
PROVIDERS: PCP Family Medicine; Referring Provider Physician Assistant; Visit Provider Physician Assistant
DX: R05.9 Cough, unspecified (principal)
CPT/HCPCS: 71046

== ENCOUNTER → 2023-12-28 | Outpatient (CLI) | payer OTHER, SELFPAY ==
[2023-12-28 12:21] LABS: Absolute Lymphocyte Count 1.82 X10^3/uL (0.83-4.51); Absolute Neutrophil Count 3.8 X10^3/uL (2.0-7.7); Basophil# 0.06 X10^3/uL; Eosinophil# 0.06 X10^3/uL; Hematocrit 39.2 % (37-47); Hemoglobin 12.6 g/dL (12.0-15.0); Lymphocyte # 1.82 X10^3/ul (0.83-4.51); Mean Corp Hgb Conc 32.1 g/dL (32-36); Mean Corpuscular Hgb 27.4 pg (27.0-32.0); Mean Corpuscular Volume 85.2 fL (81-99); Mean Platelet Vol. 10.3 fl (6.2-12.0); Monocyte# 0.53 X10^3/uL; Monocyte% 8.5 % (0-10); NRBC Flagged by Analyzer 0 % (0-5); Neutrophil # 3.79 X10^3/uL (2.7-7.7); Neutrophil % 60.3 % (47-70); Platelet Count 359 K/mm3 (150-450); RBC Distribution Width CV 12.7 % (11.6-14.6); RBC Distribution Width SD 39.1 fl (35.1-43.9); White Blood Count 6.3 K/mm3 (4.4-11.0)
[2023-12-28 12:51] LABS: ALB/GLOB Ratio 1.2 RATIO (0.9-2.4); AST(SGOT) 19 U/L (15-37); Alanine Aminotransfer ALT/SGPT 24 U/L (13-56); Albumin, Serum 4.2 g/dL (3.2-5.0); Alkaline Phosphatase 77 U/L (45-117); Anion Gap 4 (5-15); BUN 10 mg/dL (7-18); BUN/Creat Ratio 11.6 RATIO (10-20); Calcium,Total 9.7 mg/dL (8.5-10.1); Chloride 107 mmol/L (98-107); Cholesterol 187 mg/dL (200); Creatinine, Serum 0.86 mg/dL (0.55-1.02); EST Glomerular Filtration Rate 72 mL/min (>60); Est Glom Filt Rate - Afr Amer 87 mL/min (>60); Globulin 3.6 g/dL (2.2-4.2); Glucose 93 mg/dL (74-106); High Density Lipoprotein 80 mg/dL; Protein, Total 7.8 g/dL (6.4-8.2); Sodium Level 139 mmol/L (136-145); Triglycerides 84 mg/dL; Very Low Density Lipoprotein 17 mg/dL (5-40)
== END | disposition home or self-care (01) ==
LOC: BFHLAB 08:27
PROVIDERS: PCP Family Medicine; Referring Provider Family Medicine; Visit Provider Family Medicine
DX: Z00.00 Encounter for general adult medical examination without abnormal findings (principal); E01.0 Iodine-deficiency related diffuse (endemic) goiter
CPT/HCPCS: 36415; 80053; 80061; 84443; 85025

== ENCOUNTER → 2024-04-14 | Outpatient (CLI) | payer OTHER, SELFPAY | END | disposition home or self-care (01) | LOC: LABSPEC 11:33 | PROVIDERS: PCP Family Medicine; Referring Provider Nurse Practitioner Family; Visit Provider Nurse Practitioner Family | DX: R30.0 Dysuria (principal) ==

== ENCOUNTER 2025-01-09 09:07 | Emergency (ER) | payer OTHER, SELFPAY ==
[2025-01-09 09:09] VITALS: BP 165/84; PULSE 112; RESP 20; TEMP 36.6; O2SAT 100
[2025-01-09 09:10] VITALS: BMI 26.4
--- NOTE | 2025-01-09 09:22 | ED.VIS.CHEST ---
HPI History of Present Illness Chief Complaint: Chest Pain Detail of Chief Complaint: Left-sided chest discomfort described as indigestion Informant: patient Onset/Context/Timing Onset: Today (Noted when she awoke) Activity at onset: - (Unknown) Timing: Continuous Quality: Positive for Indigestion Location: Left Chest Current Severity: Mild Maximum Severity: Moderate Worsened By: Nothing Relieved By: Nothing Associated Symptoms: Positive for - (Perioral numbness and numbness in her hands); Negative for Nausea, Vomiting, Diaphoresis, Dyspnea, Cough, Fever, Lightheadedness, Acid Reflux or Palpitations Narrative Narrative: Patient is a 59-year-old woman. She has history of hypertension. Upon awakening this morning she noted she had some indigestion which she localizes to the anterior left chest under her left breast. There is no radiation. There is no associated symptoms other than perioral numbness and bilateral hand numbness. She states she still had symptoms when she went to work. Went to the school nurse. Blood pressure at that time was 172/82. She does have a history of hypertension. She states her systolic is normally approximately 130. She is still having discomfort. She has no known history of cardiac disease. She does have history of hypertension. She does not have history of diabetes and is a non-smoker. She is on cholesterol medication. Patient denies recent upper respiratory tract infectious symptoms. Patient has no intolerance to any type of food. She has no known history of GERD, peptic ulcer disease or hiatal hernia. She denies weight gain or weight loss. She states she has taken her blood pressure medicine, amlodipine 5 mg. Prior Similar Symptoms: Yes (Diagnosed with hypertension) Recent Illness/Hospitalization: No CVD Risk Factors: Positive for Hypertension; Negative for Diabetes, Hypercholesterolemia, Family History 1' </=55 or Smoking PE Risk Factors: Negative for Recent Travel/Surgery, Recent Immobilization, Prior DVT or PE, Cancer or OCP + Smoking + >/=35 TAD Risk Factors: Positive for Hypertension; Negative for Marfan's Syndrome or Family History [facility] Medical History (Updated 01/09/25 @ 12:[address] Jagdish Elliott MD) Hypertension Non-smoker Lower respiratory tract infection Hypertension Home Medications ?Medication ?Instructions ?Recorded ?Last Taken ?Type amlodipine 5 mg tablet 5 mg PO DAILY #7 tabs 09/18/22 Unknown Rx rosuvastatin 10 mg tablet 10 mg PO DAILY 05/20/23 Unknown History omeprazole 40 mg capsule,delayed 40 mg PO DAILY #30 caps 01/09/25 Unknown Rx release Allergy/AdvReac Type Severity Reaction Status Date / Time venom-honey bee Allergy Unknown Verified 01/09/25 09:11 Social History Smoking Status: Never smoker alcohol intake: never ROS ROS ED Constitutional Constitutional ED: Denies chills, fever(s), subjective, sweats or weight loss Eyes Eyes: Reports none ENT ENT ED: Denies rhinorrhea or sore throat Cardiovascular Cardiovascular: Reports as per HPI; Denies orthopnea or paroxysmal nocturnal dyspnea Respiratory/Chest Respiratory/Chest: Denies cough, dyspnea, dyspnea on exertion, orthopnea or paroxysmal nocturnal dyspnea Gastrointestinal Gastrointestinal: Denies abdominal pain, melena, nausea or vomiting Genitourinary Genitourinary ED: Denies dysuria, hematuria or urinary frequency Musculoskeletal Musculoskeletal: Denies back pain or neck pain Integumentary Denies abscess or Abrasions Neurologic Neurologic: Reports paresthesias RUE and LUE and other Details: Also endorses perioral numbness. ; Denies headache(s) Endocrine Endocrinology: Denies cold intolerance Hematologic/Lymphatic Hematologic/Lymphatic: Denies easy bleeding or easy bruising EXAM Physical Exam Const Vital Signs: 01/09/25 09:09 01/09/25 09:20 01/09/25 10:09 Temperature 97.9 F Temperature Source Oral Pulse Rate 112 H 69 Respiratory Rate 20 H 13 Respiratory Effort Normal Blood Pressure 165/84 H 127/86 H Blood Pressure Mean 111 99 Pulse Ox 100 100 Oxygen Delivery Method Room Air Room Air 01/09/25 11:00 Temperature Temperature Source Pulse Rate 77 Respiratory Rate 16 Respiratory Effort Blood Pressure 153/87 H Blood Pressure Mean 109 Pulse Ox 99 Oxygen Delivery Method Room Air Positive well nourished and well developed General Appearance ED: well developed and NAD; Negative for pallor HEENT Reports moist mucous membranes HEENT Narrative: Positive bilateral [place] sign normocephalic and atraumatic Eyes EOMs intact bilaterally General Eye ED: Negative for pale conjunctiva or scleral icterus Neck no lymphadenopathy, supple and no JVD Chest Wall Chest Narrative: No reproducible chest pain. Resp normal respiratory effort and clear to auscultation bilaterally Cardio regular rate, regular rhythm, S1 normal heart sound, S2 normal heart sound and no murmurs GI normal to inspection, nondistended, normoactive bowel sounds, soft to palpation, non-tender, non-distended and no masses; Negative for hepatosplenomegaly Extremity normal to inspection General Extremety ED: Negative for edema General Extremity: Negative for edema Neuro oriented x3, CN's II-XII intact bilaterally and no sensory deficits noted Neuro Narrative: There is no clonus or Babinski sign noted. Sensorium / Orientation: awake Motor Exam: strength 5/5 throughout Psych Mood & Affect: anxious Skin no rashes or lesions noted and no wounds General Skin Exam: Negative for jaundice or pallor MDM MDM MDM Narrative Medical decision making narrative: With bilateral paresthesia perioral numbness and positive spastic sign patient presently is hyperventilating. Do not believe this is the cause of her discomfort. Since she is a 59-year-old female with history hypertension will obtain EKG and cardiac markers to rule out cardiac etiology. Suspect this is most likely GI. A GI cocktail was ordered as well. History & Record Review Discussion w/independent historian: Significant other Additional record(s) reviewed:: Prior outpatient record (Urgent care visit for puncture wound December 09, 2024. Urgent care visit for lower respiratory tract infection May 2017 and cystitis with hematuria April 14.) and Prior ED visit (September 18, 2022 for chest pain and found to have hypertension.) Lab Data Attestation: I reviewed the patient's lab results. Lab results narrative: CBC is normal. Patient metabolic panel with slight elevation of glucose of 136 with normal CO2 anion gap. First troponin is less than 6. Second troponin was 9. Both are normal with a delta less than 7. Labs: Laboratory Results - last 24 hr 01/09/25 01/09/25 09:20 10:49 WBC 6.7 RBC 4.98 Hgb 13.8 Hct 41.8 MCV 83.9 MCH 27.7 MCHC 33.0 RDW Std Deviation 38.8 RDW Coeff of Jose J 12.8 Plt Count 387 MPV 9.5 Immature Gran % (Auto) 0.300 Neut % (Auto) 61.8 Lymph % (Auto) 28.0 [place] % (Auto) 8.2 Eos % (Auto) 0.7 Baso % (Auto) 1.0 Absolute Neuts (auto) 4.1 Absolute Lymphs (auto) 1.88 Nucleated RBC % 0 Sodium 137 Potassium 3.8 Chloride 99 Carbon Dioxide 21.0 Anion Gap 17 H BUN 9 Creatinine 0.83 Estim Creat Clear Calc 76.16 Est GFR (MDRD) Non-Af 82 BUN/Creatinine Ratio 10.7 Glucose 136 H Calcium 10.5 Troponin T High Sens < 6 Troponin T Hi Sens 2 Hr 9 Radiography Chest X-Ray - ED: 2 View, Read by ED Physician (Independently interpreted by me at 1004.), Unchanged, Normal, Heart, Lungs, Mediastinum, Bony Structures and No Acute Disease Diagnostic Testing: Clinical Impression(s) from Imaging Studies Chest X-Ray 01/09/25 09:56 IMPRESSION: Hyperinflation. The lungs are clear. Reading Location: [facility] EK Initial EKG: Attestation: I personally reviewed and interpreted this EKG as follows: Interpretation: Sinus Rhythm (EKG is normal with a rate of 80. MO [place]azz[place] 38 ms. Cures duration 74 ms. QT duration is 360 ms. [place] is normal.) Treatment and Re-Evaluation :: Patient was reassessed and informed of results at 1201. Her pain improved markedly with GI cocktail. Since her workup is negative suspect this is due to GI pathology. Will discharge with prescription for omeprazole. Discharge Plan Triage Chief Complaint: Chest Pain Other Complaint: Numb/Ting ED Provider: Jagdish Elliott Dx/Rx/DC Orders Clinical Impression: Acid indigestion, Chest pain, Hyperglycemia, Elevated blood pressure reading with diagnosis of hypertension, Acute hyperventilation syndrome Instructions: ED GERD (Adult) Prescriptions: New omeprazole 40 mg capsule,delayed release(DR/EC) 40 mg PO DAILY Qty: 30 0RF No Action rosuvastatin 10 mg tablet 10 mg PO DAILY Patient Comments: TAKE 1 TABLET BY MOUTH EVERY DAY amlodipine 5 mg tablet 5 mg PO DAILY Qty: 7 0RF Primary Care Provider: Manohar Adams Referrals: Manohar Adams DO [Primary Care Provider, Family Practice] - 1-2 Weeks Print Language: Romanian Disposition Disposition: Home, Self Care
[2025-01-09 09:28] LABS: Hematocrit 41.8 % (37-47); Hemoglobin 13.8 g/dL (12.0-15.0); Immature Granulocytes Count 0.020 X10^3/uL (0.0-0.0); Mean Corp Hgb Conc 33.0 g/dL (32-36); Mean Corpuscular Volume 83.9 fL (81-99); Mean Platelet Vol. 9.5 fl (6.2-12.0); NRBC Flagged by Analyzer 0 % (0-5); Platelet Count 387 K/mm3 (150-450); RBC Distribution Width CV 12.8 % (11.6-14.6); RBC Distribution Width SD 38.8 fl (35.1-43.9); Red Blood Count 4.98 M/mm3 (4.2-5.4); White Blood Count 6.7 K/mm3 (4.4-11.0)
[2025-01-09] MEDS: Lidocaine 2% Viscous15 ML UDC 15 ML PO (09:35)
--- NOTE | 2025-01-09 09:56 | RAD_ITS ---
PROCEDURE: CHEST PA AND LATERAL 01/09/2025 REASON FOR EXAM: LEFT-SIDED CHEST DISCOMFORT TECHNIQUE: Procedure Code: RADCXR Modality: DX Procedure: CHEST PA AND LATERAL COMPARISON: Prior study dated May 31, 2023. FINDINGS: Hardware: EKG electrodes are seen. Heart: The heart size is normal. Mediastinum: The mediastinal contour is unremarkable. Lungs: Hyperinflation. The lungs are clear. Bones: The bones are unremarkable. RAD/Chest PA and Lateral IMPRESSION: Hyperinflation. The lungs are clear. Reading Location: [id number]
[2025-01-09 10:09] VITALS: BP 127/86; PULSE 69; RESP 13; O2SAT 100
[2025-01-09 10:25] LABS: Anion Gap 17 (5-15); BUN 9 mg/dL (4-19); BUN/Creat Ratio 10.7 RATIO (10-20); Calcium,Total 10.5 mg/dL (7.6-11.0); Carbon Dioxide 21.0 mmol/L (21.0-32.0); Chloride 99 mmol/L (98-108); Estimated Creatinine Clearance 76.16 ml/min (50-250); Glucose 136 mg/dL (70-99); Potassium 3.8 mmol/L (3.3-5.1)
[2025-01-09 10:27] LABS: Troponin T High Sensitivity < 6 ng/L (<=14)
[2025-01-09 11:00] VITALS: BP 153/87; PULSE 77; RESP 16; O2SAT 99
[2025-01-09 11:24] LABS: Troponin T High Sens 2 HR 9 ng/L (<=14)
[2025-01-09 12:11] VITALS: BP 137/89; PULSE 69; RESP 13; TEMP 36.7; O2SAT 98
== END 2025-01-09 12:18 | disposition home or self-care (01) ==
PROVIDERS: Emergency Provider Emergency Medicine; PCP Family Medicine; Visit Provider Emergency Medicine
DX: R07.9 Chest pain, unspecified (principal); R06.4 Hyperventilation; K30 Functional dyspepsia; Z79.899 Other long term (current) drug therapy; R73.9 Hyperglycemia, unspecified; R31.9 Hematuria, unspecified; R03.0 Elevated blood-pressure reading, without diagnosis of hypertension; R20.2 Paresthesia of skin
CPT/HCPCS: 71046; 80048; 84484; 85025; 93005; 99285; A4216